=== PATIENT | female | born 1990 | race Caucasian/White ===

== ENCOUNTER → 2024-08-01 08:31 | Outpatient (REF) | payer OTHER, SELFPAY | LOC: PNTC 08:31 | PROVIDERS: ATTENDING PHYSICIAN Obstetrics & Gynecology | DX: O99.210 Obesity complicating pregnancy, unspecified trimester (principal) | CPT/HCPCS: 76816 ==

== ENCOUNTER → 2024-09-18 13:55 | Outpatient (REF) | payer OTHER, SELFPAY | LOC: PNTC 13:55 | PROVIDERS: ATTENDING PHYSICIAN Obstetrics & Gynecology | DX: O99.210 Obesity complicating pregnancy, unspecified trimester (principal) | CPT/HCPCS: 76816 ==

== ENCOUNTER 2024-10-22 16:12 | Inpatient (IN) | payer OTHER, SELFPAY ==
[2024-10-22 16:15] VITALS: BP 141/87; BMI 34.9
[2024-10-22] MEDS: LR 1000 IV ×2 (17:00→20:05)
[2024-10-22 17:12] LABS: % Basophils 0.3 % (0-2); % Eosinophils 0.1 % (0-6); % Immature Granulocytes 0.4 % (0-0.5); % Lymphocytes 13.5 % (20.5-51.1); % Monocytes 5.9 % (1.7-9.3); % Neutrophils 79.8 % (42.2-75.2); Absolute Immature Granulocytes 0.1 10^3/uL (0-0.05); Absolute Lymphocytes 1.6 10^3/uL (1.2-3.4); Absolute Monocytes 0.7 10^3/uL (0.1-0.6); Absolute Neutrophils 9.4 10^3/uL (1.4-6.5); Hematocrit 35.5 % (37.0-47.0); Mean Corp Hgb Conc. 33.8 g/dL (33.0-37.0); Mean Corpuscular Hgb 30.6 pg (27.0-31.0); Mean Corpuscular Volume 90.6 fL (81.0-99.0); Mean Platelet Volume 10.6 fL (7.4-10.4); Nucleated Red Blood Cells % 0 %; Platelet Count 221 10^3/uL (130-400); Red Blood Cell Count 3.92 10^6/uL (4.20-5.40); Red Cell Dist. Width 11.8 % (11.5-14.5); White Blood Cell Count 11.8 10^3/uL (4.8-10.8)
[2024-10-22] MEDS: PENICILLIN 110 UNITS IV (17:45)
[2024-10-22] MEDS: FENTANYL/BUPIVACAINE 100 EPIDURAL (19:30)
[2024-10-22] MEDS: SUBLIMAZE 100 MCG EPIDURAL (19:30)
[2024-10-22] MEDS: PENICILLIN 55 UNITS IV (21:27)
[2024-10-23] MEDS: PITOCIN 30 UNITS/NSS 500 ML IV (00:11)
[2024-10-23] MEDS: PENICILLIN IV (01:10)
[2024-10-23] MEDS: MOTRIN 600 MG PO (04:54)
[2024-10-24 04:37] LABS: Hematocrit 34.1 % (37.0-47.0); Hemoglobin 11.5 g/dL (12.0-16.0)
[2024-10-24] MEDS: PRENATAL PLUS PO (07:42)
[2024-10-25] MEDS: SENOKOT-S 1 TABLET PO (07:41)
[2024-10-25] MEDS: PRENATAL PLUS 1 TABLET PO ×2 (07:41→07:42)
[2024-10-25 11:18] LABS: Syphilis/T. pallidum Ab Reflex Negative (Negative)
== END 2024-10-25 11:56 | disposition home or self-care (01) | DRG 807 ==
LOC: LDRP 16:12
PROVIDERS: ADMITTING PHYSICIAN Obstetrics & Gynecology
PROC: 10E0XZZ Delivery of Products of Conception, External Approach (ICD-10-PCS; 2024-10-22)
PROC: 0UQMXZZ Repair Vulva, External Approach (ICD-10-PCS; 2024-10-22)
DX: O99.824 Streptococcus B carrier state complicating childbirth (principal); Z37.0 Single live birth; B95.1 Streptococcus, group B, as the cause of diseases classified elsewhere; Z3A.39 39 weeks gestation of pregnancy; O70.0 First degree perineal laceration during delivery
CPT/HCPCS: 36415; 85014; 85018; 85025; 86780; 86850; 86900; 86901